=== PATIENT | female | born 1945 ===

== ENCOUNTER → 2021-12-12 | Outpatient (CLI) | payer MEDICARE | END | disposition home or self-care (01) | LOC: LAB SHORT 15:45 | DX: E55.9 Vitamin D deficiency, unspecified (principal) | CPT/HCPCS: 82306 ==

== ENCOUNTER 2022-06-14 15:34 | Emergency (ER) | payer MEDICARE ==
[~2022-06-14] VITALS: Ht 160 cm; Wt 77.6 kg
[2022-06-14] MEDS ORDERED: TRAM50 PO (16:07)
[2022-06-14] MEDS ORDERED: TIZA4 PO (16:08)
[2022-06-14] MEDS ORDERED: IBUP800 PO (19:08)
[2022-06-14] MEDS ORDERED: OXAYDO5 M1 PO ×2 (19:08→19:43)
== END 2022-06-14 19:59 | disposition home or self-care (01) ==
LOC: ER 15:34
DX: S82.64XA Nondisplaced fracture of lateral malleolus of right fibula, initial encounter for closed fracture (principal); Z79.899 Other long term (current) drug therapy; W19.XXXA Unspecified fall, initial encounter; Y92.096 Garden or yard of other non-institutional residence as the place of occurrence of the external cause
CPT/HCPCS: 29515; 73610; 96374-59; 96375-59; 99284-25; A9270; J1170; J1885

== ENCOUNTER → 2025-03-21 | Outpatient (CLI) | payer MEDICARE ==
[~2025-03-21] MED LIST: IBUP800 PO; OXAYDO5 M1 PO; TIZA4 PO; TRAM50 PO
[2025-03-21 20:20] LABS: Anion Gap 7.0 mmol/L (3-11); Blood Urea Nitrogen 15.0 mg/dL (8-24); CO2, Blood 31.0 mmol/L (21-32); Calcium, Blood 9.6 mg/dL (8.5-10.1); Chloride, Blood 103.0 mmol/L (98-108); Creatinine, Blood 0.88 mg/dL (0.40-1.00); Glucose, Blood 97.0 mg/dL (70-99); Potassium, Blood 3.7 mmol/L (3.5-5.5); Sodium, Blood 137.0 mmol/L (136-145)
== END ==
LOC: LAB 17:57 → LAB SHORT 17:57
PROVIDERS: Hospitalist
DX: I10 Essential (primary) hypertension (principal)
CPT/HCPCS: 80048